=== PATIENT | female | born 1950 | race Caucasian/White ===

== ENCOUNTER 2018-11-18 06:57 | Day surgery (SDC) | payer MEDICARE, OTHER ==
[~2018-11-18] VITALS: Ht 167.6 cm; Wt 132.4 kg
[~2018-11-18 06:57] MED LIST: CYMBALTA 60MG60 MG PO; DILTIAZEM120 MG PO; FEXOFENADINE180 MG PO; FOLIC ACID 40400 MCG PO; GABAPENTIN TAB600 MG PO; IRON325 M1 PO; LETROZOLE2.5 MG PO; LISINOPRIL20 MG PO; LYRICA 75MG CAP75 MG PO; MOBIC 7.5MG7.5 MG PO; NORCO 325 MG-51 TAB PO; PRAVASTATIN20 MG PO; PRILOSEC 20MG20 MG PO; RELAFEN500 MG PO; SERTRALINE100 MG PO; TYLENOL PM EXTR1 TA1 PO; ULTRAM 50MG TAB50 MG PO; VITAMIN C500 MG PO
[2018-11-18 07:23] VITALS: BP 141/71; PULSE 53; TEMP 97.8
[2018-11-18] MEDS ORDERED: GLUCOPHAGE XR500 M1 PO (07:31)
[2018-11-18] MEDS ORDERED: BENTYL 20MG20 MG/TAB PO (07:31)
[2018-11-18] MEDS ORDERED: PROAIR HFA0.09 MG/AC IH (07:32)
[2018-11-18] MEDS ORDERED: ARIMIDEX1 MG PO (07:32)
[2018-11-18] MEDS ORDERED: CELEXA 20MG20 MG/TAB PO (07:33)
[2018-11-18] MEDS ORDERED: DESYREL 100MG100 MG PO (07:33)
[2018-11-18] MEDS ORDERED: BUSPIRONE HCL7.5 MG PO (07:34)
[2018-11-18] MEDS ORDERED: NEURONTIN300 MG/CAP PO (07:35)
[2018-11-18] MEDS ORDERED: TOPROL XL100 MG PO (07:35)
[2018-11-18] MEDS ORDERED: PLAVIX 75MG TAB75 MG PO (07:36)
[2018-11-18 09:10] VITALS: BP 126/69; PULSE 65; TEMP 97.3
--- NOTE | 2018-11-18 09:10 | NUR ---
PT RETURNS FROM PROCEDURE TO BAY 4 BY CART. AMBULATES FROM CART TO CHAIR WITH STANDBY ASSIST. MONITORS APPLIED. VSS AND AT BASELINE. PT IS ALERT. DENIES PAIN OR NAUSEA. REQUESTS ICE CREAM AND SODA. FRIEND IN ROOM. CALL LIGHT IN REACH.
[2018-11-18 09:25] VITALS: BP 123/66; PULSE 68
--- NOTE | 2018-11-18 09:25 | NUR ---
PT REMAINS ALERT. CONTINUES TO DENY PAIN OR NAUSEA. TOLERATES FOOD AND DRINK. CALL LIGHT IN REACH. FRIEND IN ROOM.
[2018-11-18 09:40] VITALS: BP 109/62; PULSE 60
--- NOTE | 2018-11-18 09:40 | NUR ---
PT CONTINUES TO DENY PAIN OR NAUSEA. IV SITE DC'D WITH CATH TIP INTACT. COVERED WITH COTTON BALL AND COBAN. DC INSTRUCTIONS GIVEN. PT VOICES UNDERSTANDING.
== END 2018-11-18 09:55 | disposition home or self-care (01) ==
LOC: SDCO 06:57
DX: K21.0 Gastro-esophageal reflux disease with esophagitis (principal); K22.2 Esophageal obstruction; Z86.010 Personal history of colon polyps; Z80.0 Family history of malignant neoplasm of digestive organs; E11.9 Type 2 diabetes mellitus without complications; I10 Essential (primary) hypertension
CPT/HCPCS: C1726; J2250; J3010; J7030